=== PATIENT | female | born 1950 | race Asian ===

== ENCOUNTER 2019-11-05 08:56 | Inpatient (IN) | payer MEDICARE, OTHER ==
[~2019-11-05] VITALS: Ht 157.5 cm; Wt 54.9 kg
[2019-11-05] MEDS ORDERED: ONDANSETRON HCL 4MG/2ML INJ IV STA (10:37)
[2019-11-05] MEDS ORDERED: SODIUM CHLORIDE 0.9% 1,000 ML IV ONE (10:37)
[2019-11-05] MEDS ORDERED: DIAZEPAM 5 MG TABLET PO ONE (10:45)
[2019-11-05] MEDS ORDERED: MECLIZINE 25MG TABLET PO ONE ×2 (11:00→15:00)
[2019-11-05 11:17] LABS: BASOPHILS % 0.5 % (0.0-2.0); EOSINOPHILS % 0.8 % (0.0-5.0); HEMATOCRIT. 36.7 % (36.0-48.0); HEMOGLOBIN. 12.3 g/dL (12.0-16.0); LYMPHOCYTES % 8.7 % (20.0-50.0); MEAN CORPUSCULAR HEMOGLOBIN 30.8 pg (28.0-32.0); MEAN CORPUSCULAR VOLUME 91.8 fL (81.0-99.0); PLATELET 243 x1000/uL (130-400); RED CELL DISTRIBUTION WIDTH 13.1 % (11.6-14.6)
[2019-11-05 11:20] LABS: CHLORIDE 106 mEq/L (98-107)
[2019-11-05 11:24] LABS: INR 0.9; PROTHROMBIN TIME 9.7 sec (9.6-11.0)
[2019-11-05] MEDS ORDERED: ASPIRIN 325MG TABLET PO ONE (15:00)
[2019-11-05] MEDS ORDERED: MAGNESIUM/ALUMINUM HYDROXIDE/SIMETHICONE 30ML UDC PO PRN (15:30)
[2019-11-05] MEDS ORDERED: NITROGLYCERIN 0.4MG TABLET SL SL PRN (15:30)
[2019-11-05] MEDS ORDERED: TRAMADOL 50MG TABLET PO PRN (15:30)
[2019-11-05] MEDS ORDERED: CLONIDINE 0.1MG TABLET PO PRN (15:30)
[2019-11-05] MEDS ORDERED: DOCUSATE SODIUM 100MG CAPSULE PO PRN (15:30)
[2019-11-05] MEDS ORDERED: IPRATROPIUM/ALBUTEROL 0.5-3(2.5)MG/3ML NEB NEB PRN (15:30)
[2019-11-05] MEDS ORDERED: GUAIFENESIN 200MG/10ML SUGAR FREE UDC PO PRN (15:30)
[2019-11-05] MEDS ORDERED: KETOROLAC 15MG/ML VIAL IV PRN (15:30)
[2019-11-05] MEDS ORDERED: ACETAMINOPHEN 325MG TABLET PO PRN (15:30)
[2019-11-05] MEDS ORDERED: ONDANSETRON HCL 4MG/2ML INJ IV PRN (15:30)
[2019-11-05 16:04] LABS: T4 FREE 1.05 ng/dL (0.76-1.46)
[2019-11-05 16:27] LABS: VITAMIN B12 SERUM 1340 pg/mL (211-911)
[2019-11-05 16:40] LABS: FOLIC ACID (FOLATE) SERUM > 20.00 ng/mL (>5.38)
[2019-11-05] MEDS ORDERED: PROT40 PO (19:02)
[2019-11-05] MEDS ORDERED: METO-396 PO (19:02)
[2019-11-05] MEDS ORDERED: HYDR12.529 PO (19:02)
[2019-11-05] MEDS ORDERED: PRAV20TA57 PO (19:02)
[2019-11-05] MEDS ORDERED: ASPIRIN 325MG EC TABLET PO NR (20:30)
[2019-11-05] MEDS ORDERED: ZOLPIDEM TARTRATE 5MG TABLET PO PRN (23:00)
[2019-11-05] MEDS ORDERED: FAMOTIDINE 20MG TABLET PO SCH (23:00)
[2019-11-05 23:30] VITALS: BP 144/52
[2019-11-06 00:08] LABS: CREATINE KINASE 77 IU/L (26-192); CREATINE KINASE MB FRACTION < 1.0 ng/mL (0.5-3.6)
[2019-11-06] MEDS ORDERED: FAMOTIDINE 40MG TABLET PO SCH (00:44)
[2019-11-06] MEDS: ENOXAPARIN 40MG/0.4ML SYR SUBCUT SCH ×2 (00:56→21:19)
[2019-11-06 04:00] VITALS: BP 141/47
[2019-11-06 06:43] LABS: CREATINE KINASE 78 IU/L (26-192)
[2019-11-06 06:44] LABS: CREATINE KINASE MB FRACTION < 1.0 ng/mL (0.5-3.6)
[2019-11-06 08:00] VITALS: BP 154/55
[2019-11-06] MEDS: ASPIRIN 325MG EC TABLET PO SCH (09:39)
[2019-11-06 12:00] VITALS: BP 134/60
[2019-11-06 16:00] VITALS: BP 101/59
[2019-11-06 20:00] VITALS: BP 159/36
[2019-11-07] VITALS: BP 136/42
[2019-11-07 04:00] VITALS: BP 155/49
[2019-11-07 08:00] VITALS: BP 137/68
[2019-11-07] MEDS: ASPIRIN 325MG EC TABLET PO SCH (09:21)
[2019-11-07] MEDS ORDERED: TELM40TA4 (09:32)
[2019-11-07 12:00] VITALS: BP 148/54
[2019-11-07] MEDS ORDERED: ASPI-1393 PO (12:01)
[2019-11-07 14:05] VITALS: BP 148/54
== END 2019-11-07 15:08 | disposition home or self-care (01) | DRG 149 ==
LOC: ER 08:56 → 7WST 14:57 → EDBEDREQ 15:10 → SUPCPDRO 15:17 → ENRESERV 21:15
PROVIDERS: ADMIT Internal Medicine; ATTEND Internal Medicine
DX: H81.10 Benign paroxysmal vertigo, unspecified ear (principal); I10 Essential (primary) hypertension
CPT/HCPCS: 36415; 70551; 71045; 80053; 80061; 82550; 82553; 82607; 82746; 83036; 84439; 84443; 84484; 85025; 93005; 93306; 93970; 96361; 96374; 97161; 99285; J1650; J2405; J7030; J8597